=== PATIENT | female | born 1980 | race Caucasian/White ===

== ENCOUNTER 2020-11-25 05:43 | Inpatient (IN) | payer OTHER ==
[~2020-11-25] VITALS: Ht 165.1 cm; Wt 123.4 kg
[~2020-11-25 05:43] MED LIST: COLACE 100MG C100 MG PO; COLACE100 MG PO; IBU600 MG PO; NORCO 5-325 TA1 EACH PO; SYNTHROID112 MCG PO
[2020-11-25 06:18] LABS: HEMOGLOBIN 12.3 gm/dl (12.3-15.3); RED BLOOD COUNT 3.85 M/UL (4.00-5.10); WHITE BLOOD COUNT 9.7 K/UL (4.5-11.0)
[2020-11-25] MEDS ORDERED: LEVOTHYROXINE125 MCG PO (06:43)
[2020-11-25] MEDS ORDERED: PRENATABS FA T1 EACH PO (06:46)
[2020-11-25] MEDS ORDERED: IBUPROFEN600 MG PO (17:01)
[2020-11-25] MEDS ORDERED: DOCUSATE SODIU250 MG PO (17:01)
== END 2020-11-26 17:36 | disposition home or self-care (01) | DRG 807 ==
LOC: OB 05:43
PROVIDERS: Obstetrics & Gynecology; ADMIT Obstetrics & Gynecology
PROC: 0HQ9XZZ Repair Perineum Skin, External Approach (ICD-10-PCS; principal; 2020-11-25)
PROC: 10E0XZZ Delivery of Products of Conception, External Approach (ICD-10-PCS; principal; 2020-11-25)
PROC: 10907ZC Drainage of Amniotic Fluid, Therapeutic from Products of Conception, Via Natural or Artificial Opening (ICD-10-PCS; principal; 2020-11-25)
DX: O13.4 Gestational [pregnancy-induced] hypertension without significant proteinuria, complicating childbirth (principal); Z37.0 Single live birth; O36.63X0 Maternal care for excessive fetal growth, third trimester, not applicable or unspecified; O99.284 Endocrine, nutritional and metabolic diseases complicating childbirth; E03.9 Hypothyroidism, unspecified; O99.214 Obesity complicating childbirth; K21.9 Gastro-esophageal reflux disease without esophagitis; E66.9 Obesity, unspecified; Z3A.38 38 weeks gestation of pregnancy; O71.82 Other specified trauma to perineum and vulva
CPT/HCPCS: 36415; 81001; 82800; 85014; 85018; 85025; J2590; J7120